=== PATIENT | female | born 1990 | race Asian ===

== ENCOUNTER 2020-06-13 10:03 | Outpatient (CLI) | payer BC ==
--- NOTE | 2020-06-13 11:07 | ULT ---
EXAM: US Abdominal CLINICAL HISTORY: Epigastric pain. COMPARISON: None. FINDINGS: Pancreas: The visualized pancreas has a normal echotexture IVC: Visualized IVC has a normal caliber. Aorta: Visualized aorta has a normal caliber. Questionable aliasing of the celiac trunk. Liver:Normal hepatic parenchymal echotexture. No hepatic masses or intrahepatic biliary dilatation. R ight hepatic lobe measures 15.4 cm Gallbladder: No sonographic evidence of cholelithiasis, gallbladder wall thickening or pericholecysti c fluid. Noel's sign:Negative CBD: 0.3 cm common bile duct diameter Portal vein: Patent. Appropriate directional flow. Right kidney: Normal cortical echotexture. No hydronephrosis Right kidney measuring 10.7 x 3.5 x 4. 2 cm in length. Left kidney: Normal cortical echotexture. No hydronephrosis. Left kidney measuring 10.8 x 4.6 x 4.7 cm in length Spleen: Normal echotexture, measuring 10.6 cm IMPRESSION: 1. No sonographic abnormality of the solid organs. 2. 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 If there is concern for stenosis, consider CT angiography.
== END 2020-06-13 10:04 | disposition home or self-care (01) ==
LOC: SCSULT 10:03
PROVIDERS: ATTEND Internal Medicine Gastroenterology
DX: R10.13 Epigastric pain (principal); R14.0 Abdominal distension (gaseous); R63.4 Abnormal weight loss
CPT/HCPCS: 93975

== ENCOUNTER 2020-06-28 09:53 | Outpatient (CLI) | payer BC ==
--- NOTE | 2020-06-28 10:52 | ULT ---
Abdominal aortic ultrasound: 06/28/2020 HISTORY: Epigastric pain TECHNIQUE: Multiplanar grayscale sonographic imaging of the abdominal aorta and its branches obtained . Images included Doppler interrogation with color flow and spectral analysis. FINDINGS: The abdominal aorta, celiac axis, and superior mesenteric artery are patent demonstrating a ppropriate arterial waveforms. No evidence for aneurysm of the abdominal aorta is seen. Abdominal aorta measures up to 2.1 cm proximally, 1.6 cm in its midportion, and 1.5 cm distally. Bilateral comm on iliac arteries appear unremarkable. IMPRESSION: No acute findings.
== END 2020-06-28 09:54 | disposition home or self-care (01) ==
LOC: BICULT 09:53
PROVIDERS: ATTEND Internal Medicine Gastroenterology
DX: R10.13 Epigastric pain (principal); R63.4 Abnormal weight loss; R11.0 Nausea; R93.89 Abnormal findings on diagnostic imaging of other specified body structures; R14.0 Abdominal distension (gaseous)
CPT/HCPCS: 76775